=== PATIENT | male | born 1995 | race Caucasian/White ===

== ENCOUNTER → 2023-07-26 11:49 | Outpatient (CLI) | payer OTHER, SELFPAY ==
[2023-07-26 13:23] LABS: Alanine Aminotransferase 22 IU/L (<50); Albumin 4.6 g/dL (3.5-5.0); Albumin Globulin Ratio 1.4 (1.0-2.8); Alkaline Phosphatase 55 U/L (38-126); Aspartate Aminotransferase 33 IU/L (17-59); BUN Creatinine Ratio 14.3 (6-22); Bilirubin Total 0.9 mg/dL (0.2-1.3); Blood Urea Nitrogen 13 mg/dL (9-20); Calcium 9.8 mg/dL (8.4-10.2); Carbon Dioxide 23 mmol/L (22-32); Chloride 104 mmol/L (98-107); Cholesterol 180 mg/dL (140-199); Estimated Glomerular Filt Rate > 60 mL/min (>60); Globulin 3.3 g/dL (1.7-4.1); Glucose 88 mg/dL (70-100); HDL Cholesterol 46 mg/dL (40-60); HEMOLYSIS < 15 (0-50); LDL Cholesterol Calculated 112 mg/dL (<100); Potassium 4.4 mmol/L (3.4-5.1); Sodium 138 mmol/L (137-145); Total Protein 7.9 g/dL (6.3-8.2); Triglycerides 110 mg/dL (35-150)
[2023-07-26 13:46] LABS: TSH w/ Reflex to FT4 1.14 uIU/mL (0.47-4.68)
== END ==
PROVIDERS: PCP Family Medicine; Referring Provider Family Medicine; Visit Provider Family Medicine
DX: Z00.00 Encounter for general adult medical examination without abnormal findings (principal); Z83.438 Family history of other disorder of lipoprotein metabolism and other lipidemia
CPT/HCPCS: 36415; 80053; 80061; 84443

== ENCOUNTER → 2023-08-02 10:26 | Outpatient (CLI) | payer OTHER, SELFPAY ==
[2023-08-02 13:27] LABS: Clostridium Difficile Tox PCR Negative for C. diff (Negative)
== END ==
LOC: LAB 10:26
PROVIDERS: PCP Family Medicine; Referring Provider Family Medicine; Visit Provider Family Medicine
DX: Z00.00 Encounter for general adult medical examination without abnormal findings (principal); Z83.438 Family history of other disorder of lipoprotein metabolism and other lipidemia
CPT/HCPCS: 87493

== ENCOUNTER 2023-10-27 22:10 | Emergency (ER) | payer OTHER, SELFPAY ==
[2023-10-27 22:16] VITALS: BP 156/95; PULSE 89; RESP 18; TEMP 36.8; O2SAT 98; BMI 35.6
--- NOTE | 2023-10-27 22:37 | PC.NURSE ---
Injury to right thumb while taking cabinet down. Pin size hole lateral aspect of thumb and visible wood splinter under right thumb.
--- NOTE | 2023-10-27 23:08 | ED.SKABFB ---
HPI - Skin/Abscess/Foreign Bdy General Chief complaint: Skin/Abscess/Foreign Body Stated complaint: wood splinter in rt thumb Time Seen by Provider: 10/27/23 22:24 Source: patient Mode of arrival: Ambulatory Limitations: no limitations History of Present Illness HPI narrative: 28-year-old male presents for foreign body in right thumb. Patient was demolishing a dresser and his hammer hit a splinter, that got wedged into his thumb. It was lodged underneath the right thumbnail. Related Data Home Medications Medication Instructions Recorded Confirmed meloxicam PO 07/26/23 07/26/23 Previous Rx's Medication Instructions Recorded semaglutide (weight loss) 0.25 0.25 mg (0.5 mL) SUBCUT QWEEK #2 mL 08/19/23 mg/0.5 mL subcutaneous pen injector (Wegovy) Allergies Allergy/AdvReac Type Severity Reaction Status Date / Time No Known Drug Allergies Allergy Unverified 07/26/23 11:09 Review of Systems Review of Systems Narrative: See HPI Patient History Medical History Obesity Decreased hearing Wears glasses Chronic back pain Compression fracture of lumbosacral spine Family history of hyperlipidemia Encounter for well adult exam with abnormal findings Social History Smoking Status: Never smoker Smoking Status: Never smoker alcohol intake frequency: a few times a week Substance Use Type: does not use Exam Initial Vital Signs Initial Vital Signs: Vital Signs Temperature 98.3 F 10/27/23 22:16 Pulse Rate 89 10/27/23 22:16 Respiratory Rate 18 10/27/23 22:16 Blood Pressure 156/95 H 10/27/23 22:16 Pulse Oximetry 98 10/27/23 22:16 Oxygen Delivery Method Room Air 10/27/23 22:16 Const: Awake, alert, no acute distress, nontoxic appearing Skin: Puncture wound base of pad of right thumb, obvious foreign body underneath right nail bed Neuro: AO x3, CN II-XII grossly intact, moves all extremities Procedures Foreign Body OTHER Foreign Body Removal Site: right and hand Description of foreign body: other (wood) Technique: removal with forceps and incision made to facilitate removal Confirmed by:: direct visualization Complications: none Neurovascular: normal distal pulse, normal capillary fill and distal motor function normal Nerve Block Nerve Block 1: Local Anesthetic: lidocaine 1% Amount of anesthesia used (mL): 5 Side: right Nerve Blocks: digital Procedure Successful: Yes Patient Tolerated Procedure: Well and No complications Complications: none Course Orders Ordered: Discontinued Medications Hydrocodone Bitart/Acetaminophen (Hydrocodone/Acet 5/325 Prepack) 1 bottle MISC DIRECTED ONE Stop: 10/28/23 00:30 Last Admin: 10/28/23 00:55 Dose: 1 bottle Documented By: AB Vital Signs Vital signs: Vital Signs - 8 hr 10/27/23 22:16 Temperature 98.3 F Pulse Rate 89 Respiratory Rate 18 Blood Pressure 156/95 H Pulse Oximetry 98 Oxygen Delivery Method Room Air MDM - Skin/Abscess/Foreign Bdy MDM Narrative Medical decision making narrative: Foreign body under right thumbnail. Extremely difficult removal, there was a very large chunk of wood that is somehow managed to move from the entry point of the base of the right finger to underneath the nail bed. An opening in the nail bed was performed and a large chunk of wood material was removed. Bandage applied and pain prepack sent with patient for pain control Discharge Plan Departure Patient Disposition: Home Clinical Impression: Splinter of finger Instructions: DI for Splinter Removal Activity Restrictions/Additional Instructions: Wear a bandage over your finger when in use. Elevate your finger for pain. Take Tylenol and ibuprofen as needed for discomfort. A prepack of pain medication has been sent that you may use if Tylenol and ibuprofen do not control your symptoms. Be careful to not take more than 4000 mg of Tylenol daily. Prescriptions: No Action Wegovy 0.25 mg/0.5 mL pen injector 0.25 mg SUBCUT QWEEK Qty: 2 0RF Rx Instructions: administer weeks 1 through 4 of therapy meloxicam PO Referrals: Ilan Hunter DO [Primary Care Provider] - Stand Alone Forms: Patient Portal/API
[2023-10-28] MEDS: HYDROCODONE/ACET 5/325 PREPACK 1 BOTTLE MISC (00:55)
== END 2023-10-28 00:56 | disposition home or self-care (01) ==
PROVIDERS: Emergency Provider Emergency Medicine; PCP Family Medicine
DX: S60.351A Superficial foreign body of right thumb, initial encounter (principal); X58.XXXA Exposure to other specified factors, initial encounter; Y93.89 Activity, other specified
CPT/HCPCS: 10120; 64450; 99281; 99283

== ENCOUNTER → 2023-11-16 13:44 | Outpatient (CLI) | payer OTHER, SELFPAY ==
--- NOTE | 2023-11-16 13:45 | DI.MRI.S_ITS ---
PROCEDURE: MR LUMBAR SPINE WO CON INDICATIONS: Radiculopathy, lumbar region TECHNIQUE: Noncontrast sagittal T1 spin echo and T2 fast echo, sagittal STIR, and T2 fast spin echo through the lumbar spine. In cases with scoliosis, additional coronal T2 fast spin echo may be performed. COMPARISON: None. FINDINGS: Image quality: Excellent. Alignment and Curvature: Straightening of the normal lumbar lordosis. Bone Marrow: Mild Modic type 1 degenerative endplate changes at L5-S1. Marrow is of normal overall signal. No acute vertebral body compression fractures. Spinal Cord: Conus medullaris terminates at the L1-L2 level. Visualized cord demonstrates normal signal and size. Paraspinous Soft Tissues: No paravertebral masses. T12-L1: Normal appearance. L1-L2: Normal appearance. L2-L3: Normal appearance. L3-L4: Normal appearance. L4-L5: Disc desiccation and mild disc bulge. Disc height is well preserved. Mild facet arthropathy. Mild central canal stenosis. Mild bilateral neural foraminal stenosis. L5-S1: Disc desiccation and mild height loss. Mild diffuse disc bulge and small superimposed central disc protrusion. Facet arthropathy. Mild central canal stenosis. Moderate right and mild left neural foraminal stenosis. IMPRESSION: 1. Degenerative changes of the lower lumbar spine as described above. 2. Mild central canal stenosis at L4-5 and L5-S1. 3. Moderate right neural foraminal stenosis at L5-S1. Dictated by: Norris Pak M.D. on 11/16/2023 at 14:46 Approved by: Norris Pak M.D. on 11/16/2023 at 14:49
== END ==
LOC: MRI 13:45
PROVIDERS: PCP Registered Nurse; Referring Provider Registered Nurse; Visit Provider Registered Nurse
DX: M47.26 Other spondylosis with radiculopathy, lumbar region (principal); M47.27 Other spondylosis with radiculopathy, lumbosacral region; M48.061 Spinal stenosis, lumbar region without neurogenic claudication; M48.07 Spinal stenosis, lumbosacral region
CPT/HCPCS: 72148

== ENCOUNTER → 2025-01-08 09:07 | Outpatient (CLI) | payer OTHER, SELFPAY ==
--- NOTE | 2025-01-08 09:10 | DI.RAD.S_ITS ---
PROCEDURE: XR FOREARM RT 2V INDICATIONS: FOREIGN BODY IN R FOREARM TECHNIQUE: 2 views of the forearm were acquired. COMPARISON: None. FINDINGS: Bones: No fractures or dislocations. No suspicious bony lesions. Soft tissues: No suspicious soft tissue calcifications or masses. Subcutaneous foreign body projecting over the subcutaneous tissues of the proximal forearm, measuring 4 mm and 6 mm. IMPRESSION: A couple of radiopaque foreign bodies projecting along the subcutaneous tissues of the medial forearm. Dictated by: Yifan Rich M.D. on 01/08/2025 at 11:23 Approved by: Yifan Rich M.D. on 01/08/2025 at 11:24
== END ==
PROVIDERS: PCP Registered Nurse; Referring Provider Registered Nurse; Visit Provider Registered Nurse
DX: S50.851A Superficial foreign body of right forearm, initial encounter (principal); W45.8XXA Other foreign body or object entering through skin, initial encounter
CPT/HCPCS: 73090